=== PATIENT | female | born 1950 | race Hispanic/Latino ===

== ENCOUNTER → 2024-02-17 | Outpatient (CLI) | payer MEDICARE ==
--- NOTE | 2024-02-17 13:04 | HMCIMG ---
DEXA BONE DENSITY SURVEY HISTORY: Osteoporosis COMPARISON: None FINDINGS: Bone densitometry study was performed. Bone mineral density of the lumbar spine is 0.791 gram per centimeter square which corresponds to a T score of -2.3 and a Z score of 0.0. Bone mineral density of the left hip is 0.743 grams per centimeter square which corresponds to a T score of -1.6 and a Z score of 0.1. IMPRESSION: 1. Bone osteopenia of the lumbar spine and left hip.
== END | disposition home or self-care (01) ==
LOC: RAH 11:10
PROVIDERS: ATTEND Internal Medicine Critical Care Medicine
DX: M85.89 Other specified disorders of bone density and structure, multiple sites (principal); M81.0 Age-related osteoporosis without current pathological fracture
CPT/HCPCS: 77080